=== PATIENT | female | born 1950 | race Asian ===

== ENCOUNTER 2023-03-25 11:21 | Inpatient (IN) | payer OTHER, MEDICAID ==
[~2023-03-25] VITALS: Ht 142.2 cm; Wt 63.5 kg
[2023-03-25 11:30] VITALS: BP_SYST 106; PULSE 74; RESP 14; TEMP 98; O2SAT 96
[2023-03-25] MEDS ORDERED: NACL 0.9% 1,000 ML IV ONE (14:30)
[2023-03-25 15:57] LABS: HEMATOCRIT 31.9 % (36-48); HEMOGLOBIN 10.3 g/dL (12.0-16.0); MEAN CORPUSCULAR HEMOGLOBIN 30 pg (27-31); MEAN CORPUSCULAR HGB CONC 32 % (32-36); MEAN CORPUSCULAR VOLUME 92 fL (79.0-98.0); PLATELET COUNT (AUTO) 499 K/uL (130-430); RED BLOOD CELL COUNT(AUTO) 3.47 MIL/uL (4.2-6.2); RED CELL DISTRIBUTION WIDTH 14.5 % (9.0-15.0); WHITE BLOOD COUNT (AUTO) 22.9 K/uL (4.8-10.8)
[2023-03-25 16:03] LABS: ANION GAP 8 (5-15); CALCIUM 9.5 mg/dL (8.4-11.0); CARBON DIOXIDE 27 mmol/L (23-29); CHLORIDE 114 mmol/L (98-107); CREATININE 1.01 mg/dL (0.55-1.30); GLUCOSE 98 mg/dL (74-106); POTASSIUM 4.4 mmol/L (3.5-5.1); SODIUM SERUM 149 mmol/L (136-145); UREA NITROGEN, BLOOD 17 mg/dL (8-21)
[2023-03-25 16:08] LABS: ALANINE AMINOTRANSFERASE 14 U/L (12-78); ALBUMIN 2.5 g/dL (3.4-4.8); ASPARTATE AMINOTRANSFERASE 11 U/L (10-37); BILIRUBIN,DIRECT 0.1 mg/dL (0.0-0.3); TOTAL BILIRUBIN 0.3 mg/dL (0.0-1.0)
[2023-03-25 16:33] LABS: ANISOCYTOSIS 1+; BAND % (MANUAL) 4 % (0-6); BASOPHILS % (MANUAL) 0 % (0-2); EOSINOPHILS % (MANUAL) 2 % (0-7); LYMPHOCYTES % (MANUAL) 14 % (20-46); METAMYELOCYTES % 2 % (0-0); MONOCYTES % (MANUAL) 4 % (0-11); MYELOCYTES % 2 % (0-0); PLATELET ESTIMATE INCREASED (ADEQUATE)
[2023-03-25 17:18] LABS: BILIRUBIN,URINE NEGATIVE (NEGATIVE); BLOOD, URINE 2+ (NEGATIVE); CLARITY/URINE SL CLOUDY (CLEAR); COLOR,URINE YELLOW (YELLOW); GLUCOSE,URINE NEGATIVE (NEGATIVE); KETONES,URINE NEGATIVE (NEGATIVE); LEUKOCYTE ESTERASE ,URINE 1+ (NEGATIVE); NITRITE, URINE POSITIVE (NEGATIVE); PH,URINE 8.5 (5.0-8.0); PROTEIN URINE 2+ (NEGATIVE); UROBILINOGEN,URINE 0.2 (0.2-1.0)
[2023-03-25 17:28] LABS: BACTERIA,URINE MANY /HPF (None Seen); MUCUS,URINE None Seen /LPF (None Seen)
[2023-03-25] MEDS ORDERED: PIPERACILLIN/TAZO 3.375 GM in NS 50 ML IV ONE (18:00)
[2023-03-25] MEDS ORDERED: PIPERACILLIN/TAZOBACTAM 3.375 GM/VIAL (ZOSYN) IV ONE ×2 (18:07→22:31)
[2023-03-25 20:32] VITALS: PULSE 83
[2023-03-25] MEDS ORDERED: KCL 20 mEq in D5/0.45NS 1000mL 1,000 ML IV SCH (21:00)
[2023-03-25] MEDS: LevALBUTEROL HCL 1.25 MG/0.5 ML *CONC.* VIAL.NEB (XOPENEX CONC.) INH SCH (21:00)
[2023-03-25] MEDS ORDERED: LevALBUTEROL HCL 1.25 MG/0.5 ML *CONC.* VIAL.NEB (XOPENEX CONC.) INH PRN (21:00)
[2023-03-25] MEDS: PIPERACILLIN/TAZO 3.375/DEX-IS 50 ML IV SCH ×2 (21:00→23:57)
[2023-03-25] MEDS ORDERED: ONDANSETRON HCL 4 MG/2 ML VIAL IVP PRN (21:30)
[2023-03-25] MEDS: LevETIRAcetam 500 MG/5 ML UDC ORAL LIQUID GT SCH (21:30)
[2023-03-25] MEDS: BUDESONIDE 0.5 MG/2 ML AMPUL.NEB INH SCH (21:30)
[2023-03-25] MEDS ORDERED: *PPN PER PHARMACY XX PRN (21:45)
[2023-03-25 22:03] VITALS: PULSE 89
[2023-03-25] MEDS: ENOXAPARIN SODIUM 40 MG/0.4 ML SYRINGE SUBCUT SCH (22:17)
[2023-03-25] MEDS: PANTOPRAZOLE SODIUM 40 MG/VIAL (PROTONIX) IVP SCH (22:17)
[2023-03-25] MEDS ORDERED: KCL 20 mEq in 0.45% NS 1000 mL 1,000 ML IV ONE (22:31)
[2023-03-25 23:48] VITALS: PULSE 75
[2023-03-26] VITALS (18 sets, daily range): BP systolic 140–177; PULSE 62–83; RESP 14–16; TEMP 98.1–99.8; O2SAT 96–100
[2023-03-26] MEDS: LevALBUTEROL HCL 1.25 MG/0.5 ML *CONC.* VIAL.NEB (XOPENEX CONC.) INH SCH ×3 (01:26→13:26)
[2023-03-26] MEDS: PIPERACILLIN/TAZO 3.375/DEX-IS 50 ML IV SCH ×3 (06:48→17:38)
[2023-03-26] MEDS: KCL 20 mEq in D5/0.45NS 1000mL 1,000 ML IV SCH ×2 (06:48→20:23)
[2023-03-26 07:19] LABS: ANION GAP 10 (5-15); CALCIUM 7.6 mg/dL (8.4-11.0); CARBON DIOXIDE 25 mmol/L (23-29); CHLORIDE 114 mmol/L (98-107); CREATININE 1.09 mg/dL (0.55-1.30); GLUCOSE 139 mg/dL (74-106); POTASSIUM 3.5 mmol/L (3.5-5.1); SODIUM SERUM 149 mmol/L (136-145); UREA NITROGEN, BLOOD 14 mg/dL (8-21)
[2023-03-26] MEDS: BUDESONIDE 0.5 MG/2 ML AMPUL.NEB INH SCH (07:19)
[2023-03-26 08:38] LABS: BASOPHILS # (AUTO) 0.2 K/uL (0.0-0.2); BASOPHILS % (AUTO) 1.2 % (0.0-2.0); EOSINOPHILS # (AUTO) 0.4 K/uL (0.0-0.4); EOSINOPHILS % (AUTO) 3.2 % (0.0-4.0); HEMATOCRIT 26.4 % (36-48); HEMOGLOBIN 8.6 g/dL (12.0-16.0); LYMPHOCYTES # (AUTO) 2.3 K/uL (1.0-5.5); LYMPHOCYTES % (AUTO) 17.6 % (20.5-51.5); MEAN CORPUSCULAR HEMOGLOBIN 30 pg (27-31); MEAN CORPUSCULAR HGB CONC 33 % (32-36); MEAN CORPUSCULAR VOLUME 91 fL (79.0-98.0); MONOCYTES # (AUTO) 0.5 K/uL (0.0-1.0); MONOCYTES % (AUTO) 3.9 % (1.7-9.3); NEUTROPHILS # (AUTO) 9.6 K/uL (1.8-7.7); NEUTROPHILS % (AUTO) 74.1 % (40.0-70.0); PLATELET COUNT (AUTO) 438 K/uL (130-430); RED BLOOD CELL COUNT(AUTO) 2.92 MIL/uL (4.2-6.2); RED CELL DISTRIBUTION WIDTH 14.6 % (9.0-15.0); WHITE BLOOD COUNT (AUTO) 12.9 K/uL (4.8-10.8)
[2023-03-26] MEDS: PANTOPRAZOLE SODIUM 40 MG/VIAL (PROTONIX) IVP SCH ×2 (09:53→20:18)
[2023-03-26] MEDS: CARVEDILOL 6.25 MG TABLET (COREG) GT SCH ×2 (09:54→20:19)
[2023-03-26] MEDS: LevETIRAcetam 500 MG/5 ML UDC ORAL LIQUID GT SCH ×2 (09:54→20:18)
[2023-03-26] MEDS: ENOXAPARIN SODIUM 40 MG/0.4 ML SYRINGE SUBCUT SCH (20:18)
[2023-03-26] MEDS ORDERED: TRAVOPROST 0.004% 2.5 ML EYE DROPS OP SCH (21:00)
[2023-03-27] VITALS (18 sets, daily range): BP systolic 112–171; PULSE 52–84; RESP 15–17; TEMP 97.3–98.5; O2SAT 94–100
[2023-03-27] MEDS: PIPERACILLIN/TAZO 3.375/DEX-IS 50 ML IV SCH ×4 (00:03→17:16)
[2023-03-27] MEDS: LevALBUTEROL HCL 1.25 MG/0.5 ML *CONC.* VIAL.NEB (XOPENEX CONC.) INH SCH ×5 (01:18→19:28)
[2023-03-27] MEDS: BUDESONIDE 0.5 MG/2 ML AMPUL.NEB INH SCH ×3 (01:18→20:01)
[2023-03-27] MEDS ORDERED: CLON0.1T GT (01:20)
[2023-03-27] MEDS ORDERED: METF-379 GT (01:20)
[2023-03-27] MEDS ORDERED: CHLO473M5 PO (01:20)
[2023-03-27] MEDS ORDERED: METO-290 GT (01:20)
[2023-03-27] MEDS ORDERED: LOPE2CAP GT (01:20)
[2023-03-27] MEDS ORDERED: FER300L GT (01:20)
[2023-03-27] MEDS ORDERED: LANS15CA19 GT (01:20)
[2023-03-27] MEDS ORDERED: LEVE1000 GT (01:20)
[2023-03-27] MEDS ORDERED: COR6.25 GT (01:20)
[2023-03-27] MEDS ORDERED: BRI.2% EACH EYE (01:20)
[2023-03-27] MEDS ORDERED: CALC-1263 PO (01:20)
[2023-03-27] MEDS ORDERED: LISI20TA30 GT (01:20)
[2023-03-27] MEDS ORDERED: EZET10TA30 GT (01:20)
[2023-03-27] MEDS ORDERED: VITD2000 GT (01:20)
[2023-03-27] MEDS ORDERED: INSU100V9 SQ (01:20)
[2023-03-27] MEDS ORDERED: ASCO500T20 GT (01:20)
[2023-03-27 07:03] LABS: BASOPHILS % (AUTO) 0.5 % (0.0-2.0); EOSINOPHILS # (AUTO) 0.7 K/uL (0.0-0.4); EOSINOPHILS % (AUTO) 8.6 % (0.0-4.0); HEMATOCRIT 27.5 % (36-48); HEMOGLOBIN 8.8 g/dL (12.0-16.0); LYMPHOCYTES # (AUTO) 2.3 K/uL (1.0-5.5); LYMPHOCYTES % (AUTO) 27.6 % (20.5-51.5); MEAN CORPUSCULAR HEMOGLOBIN 29 pg (27-31); MEAN CORPUSCULAR HGB CONC 32 % (32-36); MEAN CORPUSCULAR VOLUME 91 fL (79.0-98.0); MONOCYTES # (AUTO) 0.6 K/uL (0.0-1.0); MONOCYTES % (AUTO) 7.8 % (1.7-9.3); NEUTROPHILS # (AUTO) 4.6 K/uL (1.8-7.7); NEUTROPHILS % (AUTO) 55.5 % (40.0-70.0); PLATELET COUNT (AUTO) 419 K/uL (130-430); RED CELL DISTRIBUTION WIDTH 14.3 % (9.0-15.0); WHITE BLOOD COUNT (AUTO) 8.3 K/uL (4.8-10.8)
[2023-03-27 07:28] LABS: ALANINE AMINOTRANSFERASE 10 U/L (12-78); ANION GAP 13 (5-15); ASPARTATE AMINOTRANSFERASE 24 U/L (10-37); CALCIUM 7.8 mg/dL (8.4-11.0); CARBON DIOXIDE 19 mmol/L (23-29); CHLORIDE 112 mmol/L (98-107); CREATININE 0.96 mg/dL (0.55-1.30); GLUCOSE 134 mg/dL (74-106); POTASSIUM 3.9 mmol/L (3.5-5.1); SODIUM SERUM 144 mmol/L (136-145); TOTAL BILIRUBIN 0.3 mg/dL (0.0-1.0); TOTAL PROTEIN, SERUM 6.7 g/dL (6.4-8.3); UREA NITROGEN, BLOOD 9 mg/dL (8-21)
[2023-03-27] MEDS: PANTOPRAZOLE SODIUM 40 MG/VIAL (PROTONIX) IVP SCH ×2 (08:28→20:45)
[2023-03-27] MEDS: LevETIRAcetam 500 MG/5 ML UDC ORAL LIQUID GT SCH ×2 (08:28→20:46)
[2023-03-27] MEDS: CARVEDILOL 6.25 MG TABLET (COREG) GT SCH ×2 (09:00→20:47)
[2023-03-27] MEDS ORDERED: amLODIPine BESYLATE 5 MG TABLET PO ONE (09:30)
[2023-03-27] MEDS: KCL 20 mEq in D5/0.45NS 1000mL 1,000 ML IV SCH ×2 (09:40→17:18)
[2023-03-27 11:21] LABS: PHOSPHORUS 2.8 mg/dL (2.7-4.5)
[2023-03-27] MEDS: FAT EMULSIONS 250 ML IV SCH (20:50)
[2023-03-27] MEDS: LATANOPROST 2.5 ML DROPS (XALATAN) OP SCH (20:51)
[2023-03-27] MEDS: ENOXAPARIN SODIUM 40 MG/0.4 ML SYRINGE SUBCUT SCH (20:52)
[2023-03-27] MEDS ORDERED: [UNRECOGNIZED DRUG - OTHER] IV SCH ×6 (21:00)
[2023-03-27] MEDS ORDERED: K PHOS IV SCH ×6 (21:00)
[2023-03-27] MEDS ORDERED: TRACE ELEMENTS IV SCH ×6 (21:00)
[2023-03-27] MEDS ORDERED: TPN PERIPHERAL IV SCH ×6 (21:00)
[2023-03-27] MEDS ORDERED: MVI IV SCH ×6 (21:00)
[2023-03-28] VITALS (18 sets, daily range): BP systolic 132–156; PULSE 53–80; RESP 12–16; TEMP 96.1–98.4; O2SAT 99–100
[2023-03-28] MEDS: PIPERACILLIN/TAZO 3.375/DEX-IS 50 ML IV SCH ×4 (00:16→20:31)
[2023-03-28] MEDS: LevALBUTEROL HCL 1.25 MG/0.5 ML *CONC.* VIAL.NEB (XOPENEX CONC.) INH SCH ×4 (01:53→20:12)
[2023-03-28 06:48] LABS: BASOPHILS % (AUTO) 0.3 % (0.0-2.0); EOSINOPHILS # (AUTO) 0.7 K/uL (0.0-0.4); EOSINOPHILS % (AUTO) 6.6 % (0.0-4.0); HEMOGLOBIN 9.5 g/dL (12.0-16.0); LYMPHOCYTES # (AUTO) 2.2 K/uL (1.0-5.5); LYMPHOCYTES % (AUTO) 20.3 % (20.5-51.5); MEAN CORPUSCULAR HEMOGLOBIN 28 pg (27-31); MEAN CORPUSCULAR HGB CONC 32 % (32-36); MEAN CORPUSCULAR VOLUME 89 fL (79.0-98.0); MONOCYTES # (AUTO) 0.9 K/uL (0.0-1.0); NEUTROPHILS # (AUTO) 7.1 K/uL (1.8-7.7); NEUTROPHILS % (AUTO) 64.8 % (40.0-70.0); PLATELET COUNT (AUTO) 490 K/uL (130-430); RED BLOOD CELL COUNT(AUTO) 3.36 MIL/uL (4.2-6.2); RED CELL DISTRIBUTION WIDTH 14.7 % (9.0-15.0); WHITE BLOOD COUNT (AUTO) 10.9 K/uL (4.8-10.8)
[2023-03-28] MEDS: BUDESONIDE 0.5 MG/2 ML AMPUL.NEB INH SCH ×2 (07:45→20:37)
[2023-03-28 07:50] LABS: ALANINE AMINOTRANSFERASE 16 U/L (12-78); ALBUMIN 2.1 g/dL (3.4-4.8); ANION GAP 10 (5-15); ASPARTATE AMINOTRANSFERASE 17 U/L (10-37); CALCIUM 7.8 mg/dL (8.4-11.0); CARBON DIOXIDE 21 mmol/L (23-29); CHLORIDE 108 mmol/L (98-107); CREATININE 1.09 mg/dL (0.55-1.30); GLUCOSE 155 mg/dL (74-106); PHOSPHORUS 2.6 mg/dL (2.7-4.5); SODIUM SERUM 139 mmol/L (136-145); TOTAL BILIRUBIN 0.5 mg/dL (0.0-1.0); UREA NITROGEN, BLOOD 8 mg/dL (8-21)
[2023-03-28 09:21] LABS: POTASSIUM 2.9 mmol/L (3.5-5.1)
[2023-03-28] MEDS: PANTOPRAZOLE SODIUM 40 MG/VIAL (PROTONIX) IVP SCH ×2 (09:58→21:38)
[2023-03-28] MEDS: CARVEDILOL 6.25 MG TABLET (COREG) GT SCH ×2 (10:10→21:54)
[2023-03-28] MEDS: LevETIRAcetam 500 MG/5 ML UDC ORAL LIQUID GT SCH ×2 (10:13→21:39)
[2023-03-28] MEDS ORDERED: POTASSIUM CHLORIDE 20 MEQ/PKT PACKET PO ONE (10:30)
[2023-03-28] MEDS ORDERED: KCL 40 mEq in 100 mL (PREMIX) 100 ML IV ONE (10:30)
[2023-03-28] MEDS ORDERED: fentaNYL CITRATE/PF 100 MCG/2 ML AMP ONE (12:55)
[2023-03-28] MEDS: KCL 20 mEq in D5/0.45NS 1000mL 1,000 ML IV SCH (14:26)
[2023-03-28] MEDS ORDERED: K PHOS IV SCH ×8 (21:00)
[2023-03-28] MEDS ORDERED: TRACE ELEMENTS IV SCH ×8 (21:00)
[2023-03-28] MEDS ORDERED: MVI IV SCH ×8 (21:00)
[2023-03-28] MEDS: LATANOPROST 2.5 ML DROPS (XALATAN) OP SCH ×2 (21:00→22:06)
[2023-03-28] MEDS ORDERED: [UNRECOGNIZED DRUG - OTHER] IV SCH ×8 (21:00)
[2023-03-28] MEDS ORDERED: TPN PERIPHERAL IV SCH ×8 (21:00)
[2023-03-28] MEDS: ENOXAPARIN SODIUM 40 MG/0.4 ML SYRINGE SUBCUT SCH (21:38)
[2023-03-28] MEDS: FAT EMULSIONS 250 ML IV SCH (21:40)
[2023-03-29] VITALS (14 sets, daily range): BP systolic 145–154; PULSE 64–80; RESP 12–20; TEMP 97.3–98.4; O2SAT 98–100
[2023-03-29] MEDS: PIPERACILLIN/TAZO 3.375/DEX-IS 50 ML IV SCH ×5 (00:23→23:30)
[2023-03-29] MEDS: KCL 20 mEq in D5/0.45NS 1000mL 1,000 ML IV SCH ×3 (00:24→23:29)
[2023-03-29] MEDS: LevALBUTEROL HCL 1.25 MG/0.5 ML *CONC.* VIAL.NEB (XOPENEX CONC.) INH SCH ×4 (01:32→20:06)
[2023-03-29 06:04] LABS: ALANINE AMINOTRANSFERASE 13 U/L (12-78); ALBUMIN 2.3 g/dL (3.4-4.8); ANION GAP 13 (5-15); ASPARTATE AMINOTRANSFERASE 15 U/L (10-37); CALCIUM 8.8 mg/dL (8.4-11.0); CARBON DIOXIDE 20 mmol/L (23-29); CHLORIDE 107 mmol/L (98-107); CREATININE 1.01 mg/dL (0.55-1.30); GLUCOSE 153 mg/dL (74-106); PHOSPHORUS 2.4 mg/dL (2.7-4.5); POTASSIUM 3.1 mmol/L (3.5-5.1); SODIUM SERUM 140 mmol/L (136-145); TOTAL BILIRUBIN 0.3 mg/dL (0.0-1.0); UREA NITROGEN, BLOOD 7 mg/dL (8-21)
[2023-03-29] MEDS: BUDESONIDE 0.5 MG/2 ML AMPUL.NEB INH SCH ×2 (08:12→20:42)
[2023-03-29 09:25] LABS: BASOPHILS # (AUTO) 0.1 K/uL (0.0-0.2); BASOPHILS % (AUTO) 1.3 % (0.0-2.0); EOSINOPHILS # (AUTO) 0.7 K/uL (0.0-0.4); EOSINOPHILS % (AUTO) 6.6 % (0.0-4.0); HEMATOCRIT 26.9 % (36-48); HEMOGLOBIN 8.8 g/dL (12.0-16.0); LYMPHOCYTES # (AUTO) 2.2 K/uL (1.0-5.5); LYMPHOCYTES % (AUTO) 20.2 % (20.5-51.5); MEAN CORPUSCULAR HEMOGLOBIN 29 pg (27-31); MEAN CORPUSCULAR HGB CONC 33 % (32-36); MEAN CORPUSCULAR VOLUME 89 fL (79.0-98.0); MONOCYTES # (AUTO) 0.8 K/uL (0.0-1.0); MONOCYTES % (AUTO) 7.1 % (1.7-9.3); NEUTROPHILS % (AUTO) 64.8 % (40.0-70.0); PLATELET COUNT (AUTO) 400 K/uL (130-430); RED BLOOD CELL COUNT(AUTO) 3.03 MIL/uL (4.2-6.2); RED CELL DISTRIBUTION WIDTH 14.6 % (9.0-15.0); WHITE BLOOD COUNT (AUTO) 10.8 K/uL (4.8-10.8)
[2023-03-29] MEDS: PANTOPRAZOLE SODIUM 40 MG/VIAL (PROTONIX) IVP SCH ×2 (09:28→20:33)
[2023-03-29] MEDS: LevETIRAcetam 500 MG/5 ML UDC ORAL LIQUID GT SCH ×2 (09:29→20:32)
[2023-03-29] MEDS: CARVEDILOL 6.25 MG TABLET (COREG) GT SCH ×2 (09:30→20:33)
[2023-03-29] MEDS: INSULIN REGULAR, HUMAN 100 UNITS/ML, 3 ML VIAL (humuLIN R) SUBCUT PRN (11:26)
[2023-03-29] MEDS ORDERED: POTASSIUM CHLORIDE 20 MEQ/PKT PACKET GT ONE (18:30)
[2023-03-29] MEDS: ENOXAPARIN SODIUM 40 MG/0.4 ML SYRINGE SUBCUT SCH (20:33)
[2023-03-29] MEDS ORDERED: TPN PERIPHERAL IV SCH ×8 (21:00)
[2023-03-29] MEDS ORDERED: K PHOS IV SCH ×8 (21:00)
[2023-03-29] MEDS ORDERED: POTASSIUM ACETATE IV SCH ×8 (21:00)
[2023-03-29] MEDS ORDERED: [UNRECOGNIZED DRUG - OTHER] IV SCH ×8 (21:00)
[2023-03-30] VITALS (19 sets, daily range): BP systolic 141–153; PULSE 66–100; RESP 12–16; TEMP 98.5–99.8; O2SAT 99–100
[2023-03-30] MEDS: LevALBUTEROL HCL 1.25 MG/0.5 ML *CONC.* VIAL.NEB (XOPENEX CONC.) INH SCH ×4 (00:22→20:07)
[2023-03-30] MEDS: PIPERACILLIN/TAZO 3.375/DEX-IS 50 ML IV SCH ×3 (04:59→17:49)
[2023-03-30] MEDS: BUDESONIDE 0.5 MG/2 ML AMPUL.NEB INH SCH ×2 (07:25→20:07)
[2023-03-30 08:16] LABS: ALANINE AMINOTRANSFERASE 16 U/L (12-78); ALBUMIN 2.1 g/dL (3.4-4.8); ANION GAP 12 (5-15); ASPARTATE AMINOTRANSFERASE 13 U/L (10-37); CALCIUM 7.5 mg/dL (8.4-11.0); CARBON DIOXIDE 21 mmol/L (23-29); CHLORIDE 106 mmol/L (98-107); CREATININE 0.95 mg/dL (0.55-1.30); GLUCOSE 138 mg/dL (74-106); POTASSIUM 3.3 mmol/L (3.5-5.1); SODIUM SERUM 139 mmol/L (136-145); TOTAL BILIRUBIN 0.2 mg/dL (0.0-1.0); TOTAL PROTEIN, SERUM 6.6 g/dL (6.4-8.3); UREA NITROGEN, BLOOD 8 mg/dL (8-21)
[2023-03-30] MEDS: CARVEDILOL 6.25 MG TABLET (COREG) GT SCH (10:01)
[2023-03-30] MEDS: PANTOPRAZOLE SODIUM 40 MG/VIAL (PROTONIX) IVP SCH ×2 (10:19→22:17)
[2023-03-30] MEDS: LevETIRAcetam 500 MG/5 ML UDC ORAL LIQUID GT SCH (10:19)
[2023-03-30] MEDS ORDERED: PIPE3.379 IV (13:10)
[2023-03-30] MEDS ORDERED: POTASSIUM CHLORIDE 20 MEQ/PKT PACKET GT ONE (13:15)
[2023-03-30] MEDS ORDERED: MENTHOL/ZINC OXIDE 113 GM OINT. TP PRN (14:15)
[2023-03-30] MEDS: KCL 20 mEq in D5/0.45NS 1000mL 1,000 ML IV SCH (14:25)
[2023-03-30] MEDS: LATANOPROST 2.5 ML DROPS (XALATAN) OP SCH (22:17)
[2023-03-30] MEDS: hydrALAZINE HCL 20 MG/ML VIAL IVP PRN (22:19)
[2023-03-30] MEDS: ENOXAPARIN SODIUM 40 MG/0.4 ML SYRINGE SUBCUT SCH (22:19)
[2023-03-30] MEDS: levETIRAcetam 1,500 MG in NS 85 ML IV SCH (22:19)
[2023-03-31] VITALS (16 sets, daily range): BP systolic 133–173; PULSE 66–96; RESP 16–18; TEMP 97.5–97.7; O2SAT 98–100
[2023-03-31] MEDS: PIPERACILLIN/TAZO 3.375/DEX-IS 50 ML IV SCH ×4 (00:04→18:05)
[2023-03-31] MEDS: LevALBUTEROL HCL 1.25 MG/0.5 ML *CONC.* VIAL.NEB (XOPENEX CONC.) INH SCH ×4 (01:40→19:46)
[2023-03-31] MEDS: KCL 20 mEq in D5/0.45NS 1000mL 1,000 ML IV SCH ×2 (06:47→16:00)
[2023-03-31] MEDS: BUDESONIDE 0.5 MG/2 ML AMPUL.NEB INH SCH ×2 (07:29→19:46)
[2023-03-31] MEDS: PANTOPRAZOLE SODIUM 40 MG/VIAL (PROTONIX) IVP SCH ×2 (10:02→21:44)
[2023-03-31] MEDS: levETIRAcetam 1,500 MG in NS 85 ML IV SCH ×2 (11:20→21:42)
[2023-03-31] MEDS ORDERED: *PPN PER PHARMACY XX PRN (16:30)
[2023-03-31] MEDS: ENOXAPARIN SODIUM 40 MG/0.4 ML SYRINGE SUBCUT SCH (21:43)
[2023-03-31] MEDS: hydrALAZINE HCL 20 MG/ML VIAL IVP PRN (21:44)
[2023-03-31] MEDS: LATANOPROST 2.5 ML DROPS (XALATAN) OP SCH (21:45)
[2023-04-01] VITALS (16 sets, daily range): BP systolic 135–165; PULSE 65–92; RESP 16–20; TEMP 96.9–98; O2SAT 95–100
[2023-04-01] MEDS: PIPERACILLIN/TAZO 3.375/DEX-IS 50 ML IV SCH ×2 (00:32→06:58)
[2023-04-01] MEDS: LevALBUTEROL HCL 1.25 MG/0.5 ML *CONC.* VIAL.NEB (XOPENEX CONC.) INH SCH ×4 (01:40→19:44)
[2023-04-01 06:20] LABS: BASOPHILS # (AUTO) 0.1 K/uL (0.0-0.2); EOSINOPHILS # (AUTO) 0.6 K/uL (0.0-0.4); EOSINOPHILS % (AUTO) 6.4 % (0.0-4.0); HEMATOCRIT 28.2 % (36-48); HEMOGLOBIN 9.6 g/dL (12.0-16.0); LYMPHOCYTES # (AUTO) 2.7 K/uL (1.0-5.5); MEAN CORPUSCULAR HEMOGLOBIN 31 pg (27-31); MEAN CORPUSCULAR HGB CONC 34 % (32-36); MEAN CORPUSCULAR VOLUME 90 fL (79.0-98.0); MONOCYTES # (AUTO) 0.6 K/uL (0.0-1.0); MONOCYTES % (AUTO) 6.7 % (1.7-9.3); NEUTROPHILS # (AUTO) 5.5 K/uL (1.8-7.7); NEUTROPHILS % (AUTO) 57.9 % (40.0-70.0); PLATELET COUNT (AUTO) 449 K/uL (130-430); RED BLOOD CELL COUNT(AUTO) 3.13 MIL/uL (4.2-6.2); RED CELL DISTRIBUTION WIDTH 15.1 % (9.0-15.0); WHITE BLOOD COUNT (AUTO) 9.5 K/uL (4.8-10.8)
[2023-04-01 06:52] LABS: ANION GAP 12 (5-15); CALCIUM 7.9 mg/dL (8.4-11.0); CARBON DIOXIDE 21 mmol/L (23-29); CHLORIDE 107 mmol/L (98-107); CREATININE 0.99 mg/dL (0.55-1.30); GLUCOSE 128 mg/dL (74-106); PHOSPHORUS 2.1 mg/dL (2.7-4.5); POTASSIUM 3.5 mmol/L (3.5-5.1); SODIUM SERUM 140 mmol/L (136-145); TRIGLYCERIDES 352 mg/dL (30-150); UREA NITROGEN, BLOOD 4 mg/dL (8-21)
[2023-04-01] MEDS: BUDESONIDE 0.5 MG/2 ML AMPUL.NEB INH SCH ×2 (07:20→19:44)
[2023-04-01] MEDS: KCL 20 mEq in D5/0.45NS 1000mL 1,000 ML IV SCH ×2 (08:59→17:47)
[2023-04-01] MEDS: PANTOPRAZOLE SODIUM 40 MG/VIAL (PROTONIX) IVP SCH ×2 (09:05→21:31)
[2023-04-01] MEDS: levETIRAcetam 1,500 MG in NS 85 ML IV SCH ×2 (09:07→21:22)
[2023-04-01] MEDS ORDERED: TPN PERIPHERAL IV SCH ×8 (21:00)
[2023-04-01] MEDS ORDERED: POTASSIUM ACETATE IV SCH ×8 (21:00)
[2023-04-01] MEDS ORDERED: K PHOS IV SCH ×8 (21:00)
[2023-04-01] MEDS ORDERED: [UNRECOGNIZED DRUG - OTHER] IV SCH ×8 (21:00)
[2023-04-01] MEDS: ENOXAPARIN SODIUM 40 MG/0.4 ML SYRINGE SUBCUT SCH (21:31)
[2023-04-01] MEDS: LATANOPROST 2.5 ML DROPS (XALATAN) OP SCH (21:31)
[2023-04-02] VITALS (16 sets, daily range): BP systolic 139–167; PULSE 69–93; RESP 12–16; TEMP 97.8–99.1; O2SAT 98–100
[2023-04-02] MEDS: LevALBUTEROL HCL 1.25 MG/0.5 ML *CONC.* VIAL.NEB (XOPENEX CONC.) INH SCH ×4 (01:32→20:26)
[2023-04-02 06:06] LABS: ALANINE AMINOTRANSFERASE 11 U/L (12-78); ALBUMIN 2.3 g/dL (3.4-4.8); ANION GAP 11 (5-15); ASPARTATE AMINOTRANSFERASE 16 U/L (10-37); CALCIUM 8.6 mg/dL (8.4-11.0); CARBON DIOXIDE 21 mmol/L (23-29); CHLORIDE 106 mmol/L (98-107); CREATININE 0.77 mg/dL (0.55-1.30); GLUCOSE 138 mg/dL (74-106); PHOSPHORUS 1.9 mg/dL (2.7-4.5); POTASSIUM 3.5 mmol/L (3.5-5.1); SODIUM SERUM 138 mmol/L (136-145); TOTAL BILIRUBIN 0.3 mg/dL (0.0-1.0); TOTAL PROTEIN, SERUM 7.1 g/dL (6.4-8.3); UREA NITROGEN, BLOOD 4 mg/dL (8-21)
[2023-04-02] MEDS: KCL 20 mEq in D5/0.45NS 1000mL 1,000 ML IV SCH ×2 (08:00→17:45)
[2023-04-02] MEDS: PANTOPRAZOLE SODIUM 40 MG/VIAL (PROTONIX) IVP SCH ×2 (08:19→21:31)
[2023-04-02] MEDS: levETIRAcetam 1,500 MG in NS 85 ML IV SCH ×2 (08:22→20:40)
[2023-04-02] MEDS: hydrALAZINE HCL 20 MG/ML VIAL IVP PRN ×2 (08:35→15:06)
[2023-04-02] MEDS: BUDESONIDE 0.5 MG/2 ML AMPUL.NEB INH SCH ×2 (09:55→20:26)
[2023-04-02] MEDS ORDERED: TPN PERIPHERAL IV SCH ×8 (21:00)
[2023-04-02] MEDS ORDERED: [UNRECOGNIZED DRUG - OTHER] IV SCH ×8 (21:00)
[2023-04-02] MEDS ORDERED: K PHOS IV SCH ×8 (21:00)
[2023-04-02] MEDS ORDERED: POTASSIUM ACETATE IV SCH ×8 (21:00)
[2023-04-02] MEDS: LATANOPROST 2.5 ML DROPS (XALATAN) OP SCH (21:32)
[2023-04-02] MEDS: ENOXAPARIN SODIUM 40 MG/0.4 ML SYRINGE SUBCUT SCH (21:32)
[2023-04-03] VITALS (15 sets, daily range): BP systolic 136–160; PULSE 89–132; RESP 12–40; TEMP 97.4–102.5; O2SAT 99–100
[2023-04-03] MEDS: LevALBUTEROL HCL 1.25 MG/0.5 ML *CONC.* VIAL.NEB (XOPENEX CONC.) INH SCH ×3 (02:51→20:04)
[2023-04-03 08:07] LABS: BASOPHILS # (AUTO) 0.1 K/uL (0.0-0.2); BASOPHILS % (AUTO) 0.5 % (0.0-2.0); EOSINOPHILS % (AUTO) 0.4 % (0.0-4.0); HEMATOCRIT 33.3 % (36-48); LYMPHOCYTES # (AUTO) 0.8 K/uL (1.0-5.5); LYMPHOCYTES % (AUTO) 6.9 % (20.5-51.5); MEAN CORPUSCULAR HEMOGLOBIN 30 pg (27-31); MEAN CORPUSCULAR HGB CONC 33 % (32-36); MEAN CORPUSCULAR VOLUME 90 fL (79.0-98.0); MONOCYTES # (AUTO) 0.4 K/uL (0.0-1.0); MONOCYTES % (AUTO) 3.1 % (1.7-9.3); NEUTROPHILS # (AUTO) 10.5 K/uL (1.8-7.7); NEUTROPHILS % (AUTO) 89.1 % (40.0-70.0); PLATELET COUNT (AUTO) 474 K/uL (130-430); RED CELL DISTRIBUTION WIDTH 15.4 % (9.0-15.0); WHITE BLOOD COUNT (AUTO) 11.8 K/uL (4.8-10.8)
[2023-04-03] MEDS: BUDESONIDE 0.5 MG/2 ML AMPUL.NEB INH SCH ×2 (08:10→20:04)
[2023-04-03 08:34] LABS: ALANINE AMINOTRANSFERASE 15 U/L (12-78); ALBUMIN 2.6 g/dL (3.4-4.8); ANION GAP 12 (5-15); ASPARTATE AMINOTRANSFERASE 12 U/L (10-37); CALCIUM 8.5 mg/dL (8.4-11.0); CARBON DIOXIDE 21 mmol/L (23-29); CHLORIDE 102 mmol/L (98-107); CREATININE 1.08 mg/dL (0.55-1.30); GLUCOSE 163 mg/dL (74-106); PHOSPHORUS 1.4 mg/dL (2.7-4.5); POTASSIUM 4.6 mmol/L (3.5-5.1); SODIUM SERUM 135 mmol/L (136-145); TOTAL BILIRUBIN 0.3 mg/dL (0.0-1.0); TOTAL PROTEIN, SERUM 7.9 g/dL (6.4-8.3); UREA NITROGEN, BLOOD 13 mg/dL (8-21)
[2023-04-03] MEDS: PANTOPRAZOLE SODIUM 40 MG/VIAL (PROTONIX) IVP SCH ×2 (08:39→20:35)
[2023-04-03] MEDS: levETIRAcetam 1,500 MG in NS 85 ML IV SCH ×2 (08:46→20:35)
[2023-04-03] MEDS: ACETAMINOPHEN 325 MG TABLET GT PRN ×2 (08:47→15:53)
[2023-04-03] MEDS: INSULIN REGULAR, HUMAN 100 UNITS/ML, 3 ML VIAL (humuLIN R) SUBCUT PRN ×2 (12:10→18:15)
[2023-04-03] MEDS: hydrALAZINE HCL 20 MG/ML VIAL IVP PRN ×3 (12:11→22:05)
[2023-04-03] MEDS ORDERED: SODIUM BICARBONATE 8.4% JECT 50 MEQ/50 ML SYRINGE IVP ONE (13:30)
[2023-04-03 13:38] LABS: BLOOD GAS PCO2 30.5 mmHg (35.0-45.0); BLOOD GAS PH 7.432 (7.350-7.450); BLOOD GAS PO2 100.5 mmHg (75.0-100.0)
[2023-04-03 13:39] LABS: ABG O2 SAT% ESTIMATE 97.8 % (94.0-100.0); ALLEN'S TEST POSITIVE (P); BLOOD GAS BASE EXCESS -3.1 mmol/L (-3.0-3.0); BLOOD GAS HCO3 19.9 mmol/L (21.0-27.0)
[2023-04-03] MEDS: KCL 20 mEq in D5/0.45NS 1000mL 1,000 ML IV SCH (14:32)
[2023-04-03] MEDS: MEROPENEM 1 GM IVPB PREMIX 50 ML IV SCH ×2 (14:32→22:11)
[2023-04-03] MEDS ORDERED: SODIUM BICARBONATE 650 MG TABLET PO SCH (15:00)
[2023-04-03] MEDS: LORazepam 2 MG/ML VIAL IVP PRN ×2 (16:36→22:49)
[2023-04-03] MEDS ORDERED: NALOXONE HCL 0.4 MG/ML AMP (NARCAN) IVP PRN (17:45)
[2023-04-03] MEDS: ACETAMINOPHEN 650 MG/20.3 ML UDC PO PRN (19:40)
[2023-04-03] MEDS: SODIUM BICARBONATE 650 MG TABLET GT SCH (20:35)
[2023-04-03] MEDS: ENOXAPARIN SODIUM 40 MG/0.4 ML SYRINGE SUBCUT SCH (20:35)
[2023-04-03] MEDS ORDERED: K PHOS IV SCH ×8 (21:00)
[2023-04-03] MEDS ORDERED: TPN PERIPHERAL IV SCH ×8 (21:00)
[2023-04-03] MEDS ORDERED: [UNRECOGNIZED DRUG - OTHER] IV SCH ×8 (21:00)
[2023-04-03] MEDS ORDERED: MVI IV SCH ×8 (21:00)
[2023-04-03] MEDS ORDERED: MAGNESIUM SULFATE IV SCH ×8 (21:00)
[2023-04-03] MEDS: LATANOPROST 2.5 ML DROPS (XALATAN) OP SCH (22:11)
[2023-04-04] VITALS (26 sets, daily range): BP systolic 82–184; PULSE 95–164; RESP 16–39; TEMP 96.7–100.5; O2SAT 95–100
[2023-04-04] MEDS: INSULIN REGULAR, HUMAN 100 UNITS/ML, 3 ML VIAL (humuLIN R) SUBCUT PRN ×5 (01:06→23:48)
[2023-04-04] MEDS: LevALBUTEROL HCL 1.25 MG/0.5 ML *CONC.* VIAL.NEB (XOPENEX CONC.) INH SCH ×4 (01:49→19:27)
[2023-04-04] MEDS: MEROPENEM 1 GM IVPB PREMIX 50 ML IV SCH ×3 (05:47→21:23)
[2023-04-04 06:23] LABS: ANION GAP 14 (5-15); CARBON DIOXIDE 21 mmol/L (23-29); CHLORIDE 101 mmol/L (98-107); CREATININE 1.41 mg/dL (0.55-1.30); GLUCOSE 181 mg/dL (74-106); POTASSIUM 4.5 mmol/L (3.5-5.1); SODIUM SERUM 136 mmol/L (136-145); UREA NITROGEN, BLOOD 21 mg/dL (8-21)
[2023-04-04 06:39] LABS: BASOPHILS # (AUTO) 0.1 K/uL (0.0-0.2); BASOPHILS % (AUTO) 0.3 % (0.0-2.0); HEMATOCRIT 31.6 % (36-48); HEMOGLOBIN 10.3 g/dL (12.0-16.0); LYMPHOCYTES % (AUTO) 6.5 % (20.5-51.5); MEAN CORPUSCULAR HEMOGLOBIN 29 pg (27-31); MEAN CORPUSCULAR HGB CONC 33 % (32-36); MEAN CORPUSCULAR VOLUME 89 fL (79.0-98.0); MONOCYTES # (AUTO) 0.3 K/uL (0.0-1.0); MONOCYTES % (AUTO) 1.6 % (1.7-9.3); NEUTROPHILS # (AUTO) 14.5 K/uL (1.8-7.7); NEUTROPHILS % (AUTO) 91.6 % (40.0-70.0); PLATELET COUNT (AUTO) 339 K/uL (130-430); RED BLOOD CELL COUNT(AUTO) 3.53 MIL/uL (4.2-6.2); RED CELL DISTRIBUTION WIDTH 15.5 % (9.0-15.0); WHITE BLOOD COUNT (AUTO) 15.8 K/uL (4.8-10.8)
[2023-04-04] MEDS: BUDESONIDE 0.5 MG/2 ML AMPUL.NEB INH SCH ×2 (07:37→20:01)
[2023-04-04] MEDS: LORazepam 2 MG/ML VIAL IVP PRN (08:36)
[2023-04-04] MEDS: PANTOPRAZOLE SODIUM 40 MG/VIAL (PROTONIX) IVP SCH ×2 (08:43→20:11)
[2023-04-04] MEDS: levETIRAcetam 1,500 MG in NS 85 ML IV SCH ×2 (08:44→20:12)
[2023-04-04] MEDS: SODIUM BICARBONATE 650 MG TABLET GT SCH ×3 (08:46→20:12)
[2023-04-04 10:07] LABS: PHOSPHORUS 2.1 mg/dL (2.7-4.5)
[2023-04-04] MEDS: ACETAMINOPHEN 650 MG/20.3 ML UDC PO PRN (10:29)
[2023-04-04] MEDS: KCL 20 mEq in D5/0.45NS 1000mL 1,000 ML IV SCH ×2 (13:36)
[2023-04-04] MEDS ORDERED: NOREPINEPHRINE BITARTRATE 8 MG in D5W 242 ML IV PRN (15:00)
[2023-04-04] MEDS ORDERED: NACL 0.9% 1,000 ML IV ONE (15:15)
[2023-04-04] MEDS ORDERED: LORazepam 2 MG/ML VIAL ONE (19:22)
[2023-04-04] MEDS: HYDROmorphone 1 MG/ML INJ. CARTRIDGE IVP PRN (19:29)
[2023-04-04] MEDS: ENOXAPARIN SODIUM 40 MG/0.4 ML SYRINGE SUBCUT SCH (20:11)
[2023-04-04] MEDS: LATANOPROST 2.5 ML DROPS (XALATAN) OP SCH (20:35)
[2023-04-04] MEDS ORDERED: SODIUM ACETATE IV SCH ×9 (21:00)
[2023-04-04] MEDS ORDERED: K PHOS IV SCH ×9 (21:00)
[2023-04-04] MEDS ORDERED: SODIUM CHLORIDE IV SCH ×9 (21:00)
[2023-04-04] MEDS ORDERED: TPN PERIPHERAL IV SCH ×9 (21:00)
[2023-04-04] MEDS ORDERED: [UNRECOGNIZED DRUG - OTHER] IV SCH ×9 (21:00)
[2023-04-04] MEDS ORDERED: dilTIAZem HCL IVP 5 MG/ML VIAL IVP ONE (23:58)
[2023-04-05] VITALS (37 sets, daily range): BP systolic 91–150; PULSE 91–137; RESP 12–39; TEMP 98.5–104; O2SAT 94–100
[2023-04-05] MEDS: KCL 20 mEq in D5/0.45NS 1000mL 1,000 ML IV SCH (02:40)
[2023-04-05] MEDS ORDERED: ACETAMINOPHEN 650 MG SUPP.RECT RC PRN (03:15)
[2023-04-05] MEDS: MEROPENEM 1 GM IVPB PREMIX 50 ML IV SCH (05:04)
[2023-04-05] MEDS: LORazepam 2 MG/ML VIAL IVP PRN (05:04)
[2023-04-05 06:28] LABS: BASOPHILS # (AUTO) 0.1 K/uL (0.0-0.2); BASOPHILS % (AUTO) 0.6 % (0.0-2.0); EOSINOPHILS % (AUTO) 0.1 % (0.0-4.0); HEMATOCRIT 32.5 % (36-48); HEMOGLOBIN 10.2 g/dL (12.0-16.0); LYMPHOCYTES # (AUTO) 2.2 K/uL (1.0-5.5); LYMPHOCYTES % (AUTO) 18.5 % (20.5-51.5); MEAN CORPUSCULAR HEMOGLOBIN 29 pg (27-31); MEAN CORPUSCULAR HGB CONC 31 % (32-36); MEAN CORPUSCULAR VOLUME 92 fL (79.0-98.0); MONOCYTES # (AUTO) 0.7 K/uL (0.0-1.0); MONOCYTES % (AUTO) 5.5 % (1.7-9.3); NEUTROPHILS # (AUTO) 9.1 K/uL (1.8-7.7); NEUTROPHILS % (AUTO) 75.3 % (40.0-70.0); PLATELET COUNT (AUTO) 237 K/uL (130-430); RED BLOOD CELL COUNT(AUTO) 3.52 MIL/uL (4.2-6.2); RED CELL DISTRIBUTION WIDTH 15.9 % (9.0-15.0); WHITE BLOOD COUNT (AUTO) 12.1 K/uL (4.8-10.8)
[2023-04-05 06:52] LABS: ALANINE AMINOTRANSFERASE 36 U/L (12-78); ALBUMIN 1.9 g/dL (3.4-4.8); ANION GAP 13 (5-15); ASPARTATE AMINOTRANSFERASE 57 U/L (10-37); CARBON DIOXIDE 18 mmol/L (23-29); CHLORIDE 104 mmol/L (98-107); CREATININE 1.66 mg/dL (0.55-1.30); GLUCOSE 162 mg/dL (74-106); PHOSPHORUS 2.7 mg/dL (2.7-4.5); POTASSIUM 5.2 mmol/L (3.5-5.1); SODIUM SERUM 135 mmol/L (136-145); TOTAL BILIRUBIN 0.3 mg/dL (0.0-1.0); TOTAL PROTEIN, SERUM 6.4 g/dL (6.4-8.3); UREA NITROGEN, BLOOD 32 mg/dL (8-21)
[2023-04-05] MEDS: LevALBUTEROL HCL 1.25 MG/0.5 ML *CONC.* VIAL.NEB (XOPENEX CONC.) INH SCH ×4 (07:00→19:00)
[2023-04-05 07:11] LABS: CALCIUM 6.9 mg/dL (8.4-11.0)
[2023-04-05] MEDS ORDERED: CALCIUM GLUCONATE 1 GM in NS 100 ML IV ONE (07:30)
[2023-04-05] MEDS: BUDESONIDE 0.5 MG/2 ML AMPUL.NEB INH SCH ×2 (08:02→20:09)
[2023-04-05] MEDS: NACL 0.9% 1,000 ML IV SCH ×3 (08:36→20:44)
[2023-04-05] MEDS: PANTOPRAZOLE SODIUM 40 MG/VIAL (PROTONIX) IVP SCH ×2 (10:26→20:18)
[2023-04-05] MEDS: levETIRAcetam 1,500 MG in NS 85 ML IV SCH ×2 (10:26→20:42)
[2023-04-05] MEDS: SODIUM BICARBONATE 650 MG TABLET GT SCH ×3 (10:26→20:18)
[2023-04-05] MEDS: HYDROmorphone 1 MG/ML INJ. CARTRIDGE IVP PRN ×2 (10:28→19:23)
[2023-04-05] MEDS: PIPERACILLIN/TAZOBACTAM 2.25 GM/ D5W 50 ML IV SCH ×6 (12:00→23:17)
[2023-04-05] MEDS ORDERED: PIPERACILLIN/TAZO 4.5GM/DEX-IS 100 ML IV SCH (14:00)
[2023-04-05] MEDS: ENOXAPARIN SODIUM 40 MG/0.4 ML SYRINGE SUBCUT SCH (20:18)
[2023-04-05] MEDS: LATANOPROST 2.5 ML DROPS (XALATAN) OP SCH ×2 (20:41→23:18)
[2023-04-05] MEDS ORDERED: SODIUM CHLORIDE IV SCH ×9 (21:00)
[2023-04-05] MEDS ORDERED: TPN PERIPHERAL IV SCH ×9 (21:00)
[2023-04-05] MEDS ORDERED: [UNRECOGNIZED DRUG - OTHER] IV SCH ×9 (21:00)
[2023-04-05] MEDS ORDERED: NA PHOS IV SCH ×9 (21:00)
[2023-04-05] MEDS: INSULIN REGULAR, HUMAN 100 UNITS/ML, 3 ML VIAL (humuLIN R) SUBCUT PRN (23:21)
[2023-04-06] VITALS (37 sets, daily range): BP systolic 106–147; PULSE 92–108; RESP 16–34; TEMP 97.9–98.8; O2SAT 98–100
[2023-04-06] MEDS: LevALBUTEROL HCL 1.25 MG/0.5 ML *CONC.* VIAL.NEB (XOPENEX CONC.) INH SCH ×4 (00:20→19:00)
[2023-04-06] MEDS: PIPERACILLIN/TAZOBACTAM 2.25 GM/ D5W 50 ML IV SCH ×8 (05:47→23:59)
[2023-04-06] MEDS: INSULIN REGULAR, HUMAN 100 UNITS/ML, 3 ML VIAL (humuLIN R) SUBCUT PRN ×3 (05:51→18:46)
[2023-04-06 06:09] LABS: ALANINE AMINOTRANSFERASE 40 U/L (12-78); ALBUMIN 1.6 g/dL (3.4-4.8); ANION GAP 12 (5-15); ASPARTATE AMINOTRANSFERASE 61 U/L (10-37); CARBON DIOXIDE 19 mmol/L (23-29); CHLORIDE 106 mmol/L (98-107); CREATININE 1.85 mg/dL (0.55-1.30); GLUCOSE 181 mg/dL (74-106); PHOSPHORUS 3.8 mg/dL (2.7-4.5); POTASSIUM 4.7 mmol/L (3.5-5.1); SODIUM SERUM 137 mmol/L (136-145); TOTAL BILIRUBIN 0.2 mg/dL (0.0-1.0); TOTAL PROTEIN, SERUM 5.2 g/dL (6.4-8.3); UREA NITROGEN, BLOOD 40 mg/dL (8-21)
[2023-04-06] MEDS: SODIUM BICARBONATE 650 MG TABLET GT SCH ×3 (09:00→21:18)
[2023-04-06] MEDS: BUDESONIDE 0.5 MG/2 ML AMPUL.NEB INH SCH ×2 (09:00→21:00)
[2023-04-06] MEDS: PANTOPRAZOLE SODIUM 40 MG/VIAL (PROTONIX) IVP SCH ×2 (09:28→21:18)
[2023-04-06] MEDS: levETIRAcetam 1,500 MG in NS 85 ML IV SCH ×2 (09:29→21:18)
[2023-04-06 10:17] LABS: CALCIUM 6.1 mg/dL (8.4-11.0)
[2023-04-06] MEDS ORDERED: [UNRECOGNIZED DRUG - OTHER] IV SCH ×20 (10:45→21:00)
[2023-04-06] MEDS ORDERED: TPN PERIPHERAL IV SCH ×38 (10:45→21:00)
[2023-04-06] MEDS ORDERED: NA PHOS IV SCH ×20 (10:45→21:00)
[2023-04-06] MEDS ORDERED: SODIUM CHLORIDE IV SCH ×38 (10:45→21:00)
[2023-04-06] MEDS ORDERED: [UNRECOGNIZED DRUG - OTHER] IV SCH ×18 (11:45→21:00)
[2023-04-06] MEDS ORDERED: K PHOS IV SCH ×18 (11:45→21:00)
[2023-04-06] MEDS: MICAFUNGIN SODIUM 100 MG in NS 100 ML IV SCH (13:28)
[2023-04-06] MEDS: NACL 0.9% 1,000 ML IV SCH ×2 (13:37→23:30)
[2023-04-06] MEDS: levalbuterol HCL 0.63 MG/3 ML VIAL.NEB INH PRN (13:38)
[2023-04-06] MEDS ORDERED: CALCIUM GLUCONATE 1 GM in NS 100 ML IV ONE (16:00)
[2023-04-06] MEDS: LATANOPROST 2.5 ML DROPS (XALATAN) OP SCH (21:19)
[2023-04-06] MEDS: ENOXAPARIN SODIUM 40 MG/0.4 ML SYRINGE SUBCUT SCH (21:19)
[2023-04-06] MEDS: HYDROmorphone 1 MG/ML INJ. CARTRIDGE IVP PRN (21:28)
[2023-04-07] VITALS (37 sets, daily range): BP systolic 100–150; PULSE 92–114; RESP 17–35; TEMP 97.5–98.6; O2SAT 97–100
[2023-04-07] MEDS: LevALBUTEROL HCL 1.25 MG/0.5 ML *CONC.* VIAL.NEB (XOPENEX CONC.) INH SCH ×4 (01:00→19:00)
[2023-04-07] MEDS: HYDROmorphone 1 MG/ML INJ. CARTRIDGE IVP PRN ×2 (02:13→19:49)
[2023-04-07 06:12] LABS: ALANINE AMINOTRANSFERASE 27 U/L (12-78); ALBUMIN 1.4 g/dL (3.4-4.8); ANION GAP 12 (5-15); ASPARTATE AMINOTRANSFERASE 40 U/L (10-37); CALCIUM 7.4 mg/dL (8.4-11.0); CARBON DIOXIDE 17 mmol/L (23-29); CHLORIDE 105 mmol/L (98-107); CREATININE 1.67 mg/dL (0.55-1.30); GLUCOSE 183 mg/dL (74-106); PHOSPHORUS 3.1 mg/dL (2.7-4.5); POTASSIUM 3.9 mmol/L (3.5-5.1); SODIUM SERUM 134 mmol/L (136-145); TOTAL BILIRUBIN 0.3 mg/dL (0.0-1.0); TOTAL PROTEIN, SERUM 5.7 g/dL (6.4-8.3); TRIGLYCERIDES 251 mg/dL (30-150); UREA NITROGEN, BLOOD 40 mg/dL (8-21)
[2023-04-07] MEDS: PIPERACILLIN/TAZOBACTAM 2.25 GM/ D5W 50 ML IV SCH ×8 (06:30→23:41)
[2023-04-07 07:45] LABS: BASOPHILS % (AUTO) 0.5 % (0.0-2.0); EOSINOPHILS # (AUTO) 0.1 K/uL (0.0-0.4); HEMATOCRIT 24.8 % (36-48); HEMOGLOBIN 8.2 g/dL (12.0-16.0); LYMPHOCYTES # (AUTO) 1.3 K/uL (1.0-5.5); LYMPHOCYTES % (AUTO) 16.5 % (20.5-51.5); MEAN CORPUSCULAR HEMOGLOBIN 30 pg (27-31); MEAN CORPUSCULAR HGB CONC 33 % (32-36); MEAN CORPUSCULAR VOLUME 90 fL (79.0-98.0); MONOCYTES # (AUTO) 0.4 K/uL (0.0-1.0); MONOCYTES % (AUTO) 5.2 % (1.7-9.3); NEUTROPHILS # (AUTO) 6.3 K/uL (1.8-7.7); NEUTROPHILS % (AUTO) 76.8 % (40.0-70.0); PLATELET COUNT (AUTO) 120 K/uL (130-430); RED BLOOD CELL COUNT(AUTO) 2.74 MIL/uL (4.2-6.2); RED CELL DISTRIBUTION WIDTH 15.8 % (9.0-15.0); WHITE BLOOD COUNT (AUTO) 8.2 K/uL (4.8-10.8)
[2023-04-07] MEDS: levalbuterol HCL 0.63 MG/3 ML VIAL.NEB INH PRN (07:45)
[2023-04-07] MEDS: BUDESONIDE 0.5 MG/2 ML AMPUL.NEB INH SCH ×2 (08:02→21:00)
[2023-04-07] MEDS: PANTOPRAZOLE SODIUM 40 MG/VIAL (PROTONIX) IVP SCH ×2 (09:28→21:44)
[2023-04-07] MEDS: levETIRAcetam 1,500 MG in NS 85 ML IV SCH ×2 (09:28→21:44)
[2023-04-07] MEDS: SODIUM BICARBONATE 650 MG TABLET GT SCH ×3 (09:28→21:44)
[2023-04-07] MEDS: MICAFUNGIN SODIUM 100 MG in NS 100 ML IV SCH (12:43)
[2023-04-07] MEDS: INSULIN REGULAR, HUMAN 100 UNITS/ML, 3 ML VIAL (humuLIN R) SUBCUT PRN ×2 (12:43→18:02)
[2023-04-07] MEDS: LORazepam 2 MG/ML VIAL IVP PRN (16:45)
[2023-04-07] MEDS: NACL 0.9% 1,000 ML IV SCH ×2 (16:57→19:50)
[2023-04-07] MEDS ORDERED: K PHOS IV SCH ×9 (21:00)
[2023-04-07] MEDS ORDERED: SODIUM CHLORIDE IV SCH ×9 (21:00)
[2023-04-07] MEDS ORDERED: [UNRECOGNIZED DRUG - OTHER] IV SCH ×9 (21:00)
[2023-04-07] MEDS ORDERED: TPN PERIPHERAL IV SCH ×9 (21:00)
[2023-04-07] MEDS: LATANOPROST 2.5 ML DROPS (XALATAN) OP SCH (21:43)
[2023-04-07] MEDS: ENOXAPARIN SODIUM 40 MG/0.4 ML SYRINGE SUBCUT SCH (21:44)
[2023-04-08] VITALS (33 sets, daily range): BP systolic 105–164; PULSE 80–117; RESP 16–30; TEMP 97–98.6; O2SAT 96–100
[2023-04-08] MEDS: INSULIN REGULAR, HUMAN 100 UNITS/ML, 3 ML VIAL (humuLIN R) SUBCUT PRN ×2 (00:05→23:30)
[2023-04-08] MEDS: LevALBUTEROL HCL 1.25 MG/0.5 ML *CONC.* VIAL.NEB (XOPENEX CONC.) INH SCH ×3 (01:00→13:00)
[2023-04-08] MEDS: NACL 0.9% 1,000 ML IV SCH ×2 (06:11→17:20)
[2023-04-08] MEDS: PIPERACILLIN/TAZOBACTAM 2.25 GM/ D5W 50 ML IV SCH ×8 (06:12→23:06)
[2023-04-08 06:18] LABS: ALANINE AMINOTRANSFERASE 24 U/L (12-78); ALBUMIN 1.2 g/dL (3.4-4.8); ANION GAP 13 (5-15); ASPARTATE AMINOTRANSFERASE 27 U/L (10-37); CALCIUM 7.2 mg/dL (8.4-11.0); CARBON DIOXIDE 16 mmol/L (23-29); CHLORIDE 110 mmol/L (98-107); CREATININE 1.64 mg/dL (0.55-1.30); GLUCOSE 89 mg/dL (74-106); PHOSPHORUS 2.7 mg/dL (2.7-4.5); POTASSIUM 3.8 mmol/L (3.5-5.1); SODIUM SERUM 139 mmol/L (136-145); TOTAL BILIRUBIN 0.3 mg/dL (0.0-1.0); TOTAL PROTEIN, SERUM 4.5 g/dL (6.4-8.3); UREA NITROGEN, BLOOD 40 mg/dL (8-21)
[2023-04-08] MEDS: levalbuterol HCL 0.63 MG/3 ML VIAL.NEB INH PRN ×3 (07:38→19:24)
[2023-04-08] MEDS: levETIRAcetam 1,500 MG in NS 85 ML IV SCH ×2 (09:00→17:17)
[2023-04-08] MEDS: SODIUM BICARBONATE 650 MG TABLET GT SCH ×3 (09:40→21:46)
[2023-04-08] MEDS: BUDESONIDE 0.5 MG/2 ML AMPUL.NEB INH SCH ×2 (11:01→20:00)
[2023-04-08] MEDS: PANTOPRAZOLE SODIUM 40 MG/VIAL (PROTONIX) IVP SCH ×2 (17:15→21:46)
[2023-04-08] MEDS: MICAFUNGIN SODIUM 100 MG in NS 100 ML IV SCH (17:17)
[2023-04-08] MEDS: HYDROmorphone 1 MG/ML INJ. CARTRIDGE IVP PRN (20:44)
[2023-04-08] MEDS ORDERED: TPN PERIPHERAL IV SCH ×9 (21:00)
[2023-04-08] MEDS ORDERED: K PHOS IV SCH ×9 (21:00)
[2023-04-08] MEDS ORDERED: SODIUM CHLORIDE IV SCH ×9 (21:00)
[2023-04-08] MEDS ORDERED: [UNRECOGNIZED DRUG - OTHER] IV SCH ×9 (21:00)
[2023-04-08] MEDS: ENOXAPARIN SODIUM 40 MG/0.4 ML SYRINGE SUBCUT SCH (21:46)
[2023-04-08] MEDS: LATANOPROST 2.5 ML DROPS (XALATAN) OP SCH (21:48)
[2023-04-09] VITALS (25 sets, daily range): BP systolic 111–159; PULSE 86–100; RESP 10–28; TEMP 97.4–98.3; O2SAT 94–100
[2023-04-09] MEDS: levalbuterol HCL 0.63 MG/3 ML VIAL.NEB INH PRN ×2 (00:08→07:54)
[2023-04-09] MEDS: HYDROmorphone 1 MG/ML INJ. CARTRIDGE IVP PRN ×2 (01:39→05:46)
[2023-04-09] MEDS: PIPERACILLIN/TAZOBACTAM 2.25 GM/ D5W 50 ML IV SCH ×4 (05:45→11:25)
[2023-04-09 06:21] LABS: BASOPHILS # (AUTO) 0.1 K/uL (0.0-0.2); BASOPHILS % (AUTO) 0.6 % (0.0-2.0); EOSINOPHILS # (AUTO) 0.5 K/uL (0.0-0.4); EOSINOPHILS % (AUTO) 5.5 % (0.0-4.0); HEMATOCRIT 23.6 % (36-48); HEMOGLOBIN 7.8 g/dL (12.0-16.0); LYMPHOCYTES # (AUTO) 1.7 K/uL (1.0-5.5); LYMPHOCYTES % (AUTO) 20.1 % (20.5-51.5); MEAN CORPUSCULAR HEMOGLOBIN 31 pg (27-31); MEAN CORPUSCULAR HGB CONC 33 % (32-36); MEAN CORPUSCULAR VOLUME 92 fL (79.0-98.0); MONOCYTES # (AUTO) 0.5 K/uL (0.0-1.0); NEUTROPHILS # (AUTO) 5.6 K/uL (1.8-7.7); NEUTROPHILS % (AUTO) 67.8 % (40.0-70.0); PLATELET COUNT (AUTO) 118 K/uL (130-430); RED BLOOD CELL COUNT(AUTO) 2.57 MIL/uL (4.2-6.2); RED CELL DISTRIBUTION WIDTH 16.2 % (9.0-15.0); WHITE BLOOD COUNT (AUTO) 8.3 K/uL (4.8-10.8)
[2023-04-09 06:31] LABS: ANION GAP 13 (5-15); CALCIUM 7.7 mg/dL (8.4-11.0); CARBON DIOXIDE 14 mmol/L (23-29); CHLORIDE 110 mmol/L (98-107); CREATININE 1.68 mg/dL (0.55-1.30); GLUCOSE 156 mg/dL (74-106); POTASSIUM 4.1 mmol/L (3.5-5.1); SODIUM SERUM 137 mmol/L (136-145); UREA NITROGEN, BLOOD 39 mg/dL (8-21)
[2023-04-09] MEDS: LevALBUTEROL HCL 1.25 MG/0.5 ML *CONC.* VIAL.NEB (XOPENEX CONC.) INH SCH (07:00)
[2023-04-09] MEDS: PANTOPRAZOLE SODIUM 40 MG/VIAL (PROTONIX) IVP SCH (08:25)
[2023-04-09] MEDS: levETIRAcetam 1,500 MG in NS 85 ML IV SCH (08:25)
[2023-04-09] MEDS: SODIUM BICARBONATE 650 MG TABLET GT SCH ×2 (08:26→15:00)
[2023-04-09] MEDS ORDERED: NYSTATIN 15 GM TOPICAL POWDER TP SCH (09:00)
[2023-04-09] MEDS ORDERED: MENTHOL/ZINC OXIDE 113 GM OINT. TP SCH (09:00)
[2023-04-09] MEDS: BUDESONIDE 0.5 MG/2 ML AMPUL.NEB INH SCH (10:09)
[2023-04-09] MEDS ORDERED: WATER FOR IRRIGATION,STERILE 1,000 ML IRRIG.SOLN IR ONE (12:35)
[2023-04-09] MEDS ORDERED: BUPIVACAINE /PF 0.25% 30 ML VIAL INJ ONE (12:35)
[2023-04-09] MEDS ORDERED: ROCURONIUM BROMIDE 10 MG/ML (ZEMURON) ONE (12:35)
[2023-04-09] MEDS ORDERED: SEVOFLURANE 15 MIN GAS INH ONE (12:35)
[2023-04-09] MEDS ORDERED: NS 1000 ML IV.SOLN IV ONE (12:35)
[2023-04-09] MEDS ORDERED: ONDANSETRON HCL 4 MG/2 ML VIAL ONE (12:35)
[2023-04-09] MEDS ORDERED: NS IRRIG SOLN 1000 ML IR ONE (12:35)
[2023-04-09] MEDS: MICAFUNGIN SODIUM 100 MG in NS 100 ML IV SCH (14:37)
[2023-04-09] MEDS ORDERED: FUROSEMIDE 20 MG/2 ML VIAL IVP ONE (15:15)
[2023-04-09] MEDS ORDERED: K PHOS IV SCH ×9 (21:00)
[2023-04-09] MEDS ORDERED: TPN PERIPHERAL IV SCH ×9 (21:00)
[2023-04-09] MEDS ORDERED: SODIUM CHLORIDE IV SCH ×9 (21:00)
[2023-04-09] MEDS ORDERED: [UNRECOGNIZED DRUG - OTHER] IV SCH ×9 (21:00)
== END 2023-04-09 17:15 | DRG 853 ==
LOC: SED 11:21 → STU 18:39 → SIC 04-04 12:14
PROVIDERS: ADMIT Family Medicine; ATTEND Family Medicine
PROC: 5A1955Z Respiratory Ventilation, Greater than 96 Consecutive Hours (ICD-10-PCS; principal; 2023-03-25)
PROC: 0DH63UZ Insertion of Feeding Device into Stomach, Percutaneous Approach (ICD-10-PCS; 2023-03-28)
PROC: 0DP6XUZ Removal of Feeding Device from Stomach, External Approach (ICD-10-PCS; 2023-03-28)
PROC: 0JB80ZZ Excision of Abdomen Subcutaneous Tissue and Fascia, Open Approach (ICD-10-PCS; 2023-04-09)
PROC: 0WQF0ZZ Repair Abdominal Wall, Open Approach (ICD-10-PCS; 2023-04-09)
DX: A41.9 Sepsis, unspecified organism (principal); J15.9 Unspecified bacterial pneumonia; R65.21 Severe sepsis with septic shock; K94.23 Gastrostomy malfunction; J96.10 Chronic respiratory failure, unspecified whether with hypoxia or hypercapnia; N39.0 Urinary tract infection, site not specified; K31.6 Fistula of stomach and duodenum; Z99.11 Dependence on respirator [ventilator] status; N17.9 Acute kidney failure, unspecified; G40.909 Epilepsy, unspecified, not intractable, without status epilepticus; Z66 Do not resuscitate; I10 Essential (primary) hypertension; E11.9 Type 2 diabetes mellitus without complications; D64.9 Anemia, unspecified; R13.10 Dysphagia, unspecified; N28.1 Cyst of kidney, acquired; Z86.73 Personal history of transient ischemic attack (TIA), and cerebral infarction without residual deficits
CPT/HCPCS: 36415; 36600; 71045; 74240-TC; 76376; 76770; 80048; 80053; 80076; 81000; 81001; 81015; 82803; 82962; 83605; 83735; 84100; 84478; 85007; 85025; 85027; 87040; 87081; 87086; 87101; 88304; 88305; 88312; 88313; 93005; 94002; 94003; 94640; 94760; 96365; 96375; 99285; C9113; G0378; J0360; J0610; J1170; J1650; J1815; J1940; J1953; J2060; J2185; J2248; J2405; J2543; J3010; J3475; J3480; J3490; J7030; J7060; J7131; J7612; J7614; J7626